=== PATIENT | female | born 1960 | race Caucasian/White ===

== ENCOUNTER → 2017-09-16 | Outpatient (CLI) | payer OTHER, MEDICAID | LOC: CIMAGING 08:09 | PROVIDERS: ATTEND Family Medicine | DX: N28.9 Disorder of kidney and ureter, unspecified (principal); R42 Dizziness and giddiness; R53.83 Other fatigue | CPT/HCPCS: 76705-PO ==

== ENCOUNTER → 2017-09-21 | Outpatient (CLI) | payer OTHER, MEDICAID ==
[~2017-09-21] MED LIST: IOPAMIDOL (ISOVUE-300) 100 ML BTL ONE
== END ==
LOC: CIMAGING 08:21
PROVIDERS: ATTEND Family Medicine
DX: R93.8 Abnormal findings on diagnostic imaging of other specified body structures (principal); R10.812 Left upper quadrant abdominal tenderness; D45 Polycythemia vera
CPT/HCPCS: 74170; Q9967

== ENCOUNTER → 2017-10-04 | Outpatient (CLI) | payer OTHER, MEDICAID | LOC: CIMAGING 08:21 | PROVIDERS: ATTEND Internal Medicine Hematology & Oncology | DX: J40 Bronchitis, not specified as acute or chronic (principal); D75.1 Secondary polycythemia | CPT/HCPCS: 71020-PO ==